=== PATIENT | female | born 1980 | race Caucasian/White ===

== ENCOUNTER → 2021-09-13 | Outpatient (CLI) | payer OTHER ==
--- NOTE | 2021-09-14 19:52 | MM ---
Reason for Exam: Screening (asymptomatic). Last mammogram was performed 16 year(s) and 2 month(s) ago. Patient History: Menarche at age 13. Patient has no children. Currently using Hormonal Contraceptives, beginning at age 21 for 4 years. 08/23/2005, Benign Excisional Biopsy on the left side. Risk Values: Maria 5 year model risk: 1.0%. NCI Lifetime model risk: 13.5%. Prior Study Comparison: 07/08/2005 Bilateral Diagnostic Mammogram, LOCATED WITHIN [facility]. Tissue Density: There are scattered fibroglandular densities. Findings: Analyzed By CAD. Patient's prior exam from 2005 is no longer available for review. There is a scar marker which overlies the upper outer aspect of the left breast. Scattered areas of asymmetric density are noted on both sides. No significant mass, suspicious microcalcification, abnormality is seen. Overall Assessment: Benign, BI-RAD 2 Management: Screening Mammogram of both breasts in 1 year. 1. Patient should continue monthly self breast exams. 2. A clinical breast exam by your physician is recommended on an annual basis. 3. This exam should not preclude additional follow-up of suspicious palpable abnormalities. Electronically signed and approved by: Sukhi Trinh M.D. Radiologist
== END | disposition home or self-care (01) ==
LOC: RADMAMWWP 06:51
PROVIDERS: ATTEND Family Medicine
DX: Z12.31 Encounter for screening mammogram for malignant neoplasm of breast (principal)
CPT/HCPCS: 77067